=== PATIENT | female | born 1990 | race Caucasian/White ===

== ENCOUNTER 2017-03-14 00:03 | Inpatient (IN) | payer OTHER ==
[2017-03-14] MEDS ORDERED: Misoprostol 25 MCG (1/4 of 100 MCG) Tab VAG PRN (00:06)
[2017-03-14] MEDS ORDERED: Sodium Chloride 0.9% 10 ML Syringe FLUSH PRN (00:06)
[2017-03-14] MEDS ORDERED: Acetaminophen 325 MG Tab PO PRN (00:06)
[2017-03-14] MEDS ORDERED: Zolpidem 5 MG Tab PO PRN (00:06)
[2017-03-14] MEDS ORDERED: Ondansetron 4 MG/2 ML SDV IV PRN (00:09)
[2017-03-14] MEDS ORDERED: Nalbuphine 10 MG/1 ML Vial IM PRN (00:09)
[2017-03-14] MEDS ORDERED: Carboprost Tromethamine 250 MCG/1 ML Amp IM PRN (00:09)
[2017-03-14] MEDS ORDERED: Misoprostol 400 MCG (4 X 100 MCG TAB) RECTAL PRN (00:09)
[2017-03-14] MEDS ORDERED: Lidocaine 1% 30 ML SDV INJECT PRN (00:09)
[2017-03-14] MEDS ORDERED: Methylergonovine 0.2 MG/1 ML Amp IM PRN (00:09)
[2017-03-14] MEDS ORDERED: fentaNYL 100 MCG/2 ML SDV IVPUSH PRN (00:09)
[2017-03-14] MEDS ORDERED: Oxytocin/Normal Saline 30 UNIT/500 ML BAG IV SCH (00:15)
[2017-03-14] MEDS ORDERED: Lactated Ringers 1,000 ML IV SCH (00:15)
--- NOTE | 2017-03-14 01:56 | HP ---
CHIEF COMPLAINT: Induction of labor plans. HISTORY OF PRESENT ILLNESS: The patient is a 26-year-old, G1, P0 currently at 39 and 3/7th weeks gestation based on last menstrual period confirmed with 11- week ultrasound. The patient and her present tonight for induction of labor because of thrombocytopenia with platelets trending downward in the office. Essentially, she had mononucleosis back in 2014 and after that developed a chronic mild immune thrombocytopenia with a positive MARIE antibody, but other rheumatological workup has been negative. During this , Maternal Medicine was consulted and essentially reported that she could do routine care. Induction of labor before 39 weeks for low platelets alone was not a necessity, and she needed to be on preeclampsia watch. If things were otherwise stable, then she could wait until later on for delivery. Oncology workup has included a Hematology visit with Dr. Montgomery's staff and they essentially report that again routine care would be indicated when the baby is delivered. Platelet count needs to be performed on the baby as these antibodies can cross the placenta and cause thrombocytopenia. Also, they report that administration of platelets likely would not be necessary appropriate treatment as her anti-platelet antibodies can destroy the transfused platelets. She has not needed doses of steroids in order to try to increase her platelet count. Her platelets have been holding in the 120s in general and at her last appointment were down to 113. We discussed risks and benefits of induction of labor including increased risk of need for operative delivery including section as compared to the risk of coming in a spontaneous labor and not having adequate platelets which would then necessitate avoidance of any neuraxial analgesia, and she would be relying only on IM and IV pain medications at that point. Discussed with her that we could also potentially try oral prednisone to see if we could boost the platelets even further and anticipate that she would be in spontaneous labor soon. Ultimately, her and she had a thorough discussion, and she called back today with additional questions. After our discussion, we agreed to proceed with induction of labor with plans for Cytotec followed by artificial rupture and augmentation with Pitocin. I am hoping that we could proceed with vaginal delivery and not end up in . The patient reports doing well. No symptoms of preeclampsia. Denies having any regular contractions, has possibly felt a little bit of uterine cramping. movement has been good. No leakage of fluid or vaginal bleeding. LABORATORY DATA: Show blood type O positive. Antibody screen negative. Hemoglobin and hematocrit have been good. Platelet counts as noted trending downward from the 120s down to 113 earlier this week. Rubella immune. Syphilis serology nonreactive. Hepatitis B negative. HIV negative. Gonorrhea and chlamydia negative. Thyroid test normal. Wet prep negative. Pap normal. Glucose test is normal. Group B strep negative. Quad screen was deferred. The patient does plan on . She did have her Tdap and influenza vaccines this . Total weight gain has been 32 pounds. PAST MEDICAL HISTORY: 1. MARIE positive after infectious mono. Rheumatology workup essentially otherwise negative. 2. Chronic mild autoimmune thrombocytopenia. 3. She has history of ear piercing. No transfusions, tattoos, or IV drug use. 4. Menarche at age 13 with monthly cycles and flow of 3 to 5 days. FAMILY HISTORY: Mother with thyroid disease and vitiligo. Father is healthy. Paternal grandfather with diabetes, CHF, kidney disease, and hypertension. Maternal grandmother with thyroid disease. Maternal aunt, thyroid disease. Maternal great uncle with thyroid disease. Paternal grandmother, great grandmother, great aunt, and great uncle with diabetes. Paternal grandmother with gallbladder disease. Maternal grandfather with heart disease and 3 stents, also has a history of bleeding ulcers. Various 2nd to 3rd degree family members with leukemia, lung cancer, heart failure, diabetes, prostate cancer, emphysema, lung cancer, liver cirrhosis, and alcohol abuse. SOCIAL HISTORY: The patient is to [facility]. She works at [employer], and he is a commissioned fire officer. They live in [place]. This will be their first child together. They have 2 dogs and no cats. His family history is only remarkable for having a sister, who is a carrier for cystic fibrosis. MEDICATIONS: vitamin 1 daily. ALLERGIES: No known drug allergies. REVIEW OF SYSTEMS: As stated under the HPI; no fever, chills, nausea, vomiting, diarrhea, constipation, dysuria, or back pain. No neurological symptoms. No symptoms of preeclampsia. No other specific concerns are reported at this time. PHYSICAL EXAMINATION: Vital Signs: Blood pressure 114/80, temperature of 98.4, respiratory rate is normal. HEENT: Grossly unremarkable. Heart: Regular without obvious murmur. Lungs: Clear to auscultation bilaterally. Abdomen: Soft without masses. Fundus is firm and contractions are palpating mild. heart tones are 130 beats per minute at baseline. Moderate [id number] variability. Accelerations are noted. [place] shows initially contractions every 3 to 4 minutes. Will have runs of contractions every 1 minute. Cervix exam is deferred at this time as there was another patient here on Labor and Delivery, who will likely need section, so we will hold off on initiating induction of labor on this patient, and I am anticipating we will do this with AROM as she is kenneth too frequently for Cytotec and possibly even too frequently to initiate Pitocin as first line. Extremities: No edema, erythema, or tenderness noted. Neurological: No focal deficits. Reflexes are 2+ and equal. There is no clonus. CBC performed; hemoglobin 12.4, platelets 134. ASSESSMENT: 1. 1, para 0, currently at 39 and 3/7th weeks' gestation. 2. Planned induction of labor for thrombocytopenia with platelets trending downward in the clinic. 3. History of MARIE positive. 4. History of mononucleosis as the inciting factor for chronic immune thrombocytopenia. Hematology report printed off confirming baby needs to have a platelet check after delivery. Mother did not have any history of any easy bruising, bleeding, or other hematological types of symptoms. There is discussion that prognosis is good and reviewed that the administration of platelets would likely not be necessary as an appropriate treatment because of her antiplatelet antibodies would likely destroy the platelets. The patient and her are here. We have discussed holding off a little bit on induction until the other patient has been stabilized, and we will see how we are doing. I anticipate at this time that I will be inducing with AROM when appropriate. The patient is also kenneth quite regularly. Therefore, assume she is actually already in spontaneous early labor. [facility] /[id number] GIANA
[2017-03-14] MEDS ORDERED: Nalbuphine 10 MG/1 ML Vial IM ONE (02:46)
[2017-03-14] MEDS: Lactated Ringers 1,000 ML IV SCH ×3 (03:13→05:54)
[2017-03-14] MEDS ORDERED: fentaNYL 100 MCG/2 ML SDV ONE (05:15)
--- NOTE | 2017-03-14 05:55 | PCM.PREANE ---
Preanesthetic Assessment - Procedure Proposed Procedure: Vaginal Delivery ITN for labor pain - Anesthesia/Transfusion/Family Hx Anesthesia History: No Prior Anesthesia Family History of Anesthesia Reaction: No Transfusion History: No Prior Transfusion(s) - Review of Systems General: No Symptoms Pulmonary: No Symptoms Cardiovascular: No Symptoms Gastrointestinal: No symptoms Neurological: No Symptoms Other: Reports: None - Physical Assessment NPO Status Date: 03/14/17 NPO Status Time: 04:00 Pulse: 79 O2 Sat by Pulse Oximetry: 98 Respiratory Rate: 20 Blood Pressure: 118/72 Height: 1.67 m Weight: 73.028 kg ASA Class: 2 Mental Status: Alert & Oriented x3 Dentition: Reports: Normal Dentition ROM/Head Extension: Full Lungs: Clear to auscultation, Normal respiratory effort Cardiovascular: Regular Rate, Regular Rhythm - Lab Values: Laboratory Last Values WBC 12.7 10^3/uL (5.0-10.0) H 03/14/17 00:18 RBC 3.91 10^6/uL (4.2-5.4) L 03/14/17 00:18 Hgb 12.4 g/dL (12.0-16.0) 03/14/17 00:18 Hct 38.0 % (37.0-47.0) 03/14/17 00:18 MCV 97.2 fL (80-100) 03/14/17 00:18 MCH 31.7 pg (27.0-34.0) 03/14/17 00:18 MCHC 32.6 g/dL (33.0-35.0) L 03/14/17 00:18 Plt Count 134 10^3/uL (150-450) L 03/14/17 00:18 - Allergies Allergies/Adverse Reactions: Allergies Allergy/AdvReac Type Severity Reaction Status Date / Time No Known Allergies Allergy Verified 03/14/17 00:06 - Blood Blood Available: No Product(s) Available: None - Anesthesia Plan Pre-Op Medication Ordered: None - Acknowledgements Anesthesia Type Planned: Spinal Pt an Appropriate Candidate for the Planned Anesthesia: Yes Alternatives and Risks of Anesthesia Discussed w Pt/Guardian: Yes Pt/Guardian Understands and Agrees with Anesthesia Plan: Yes Additional Comments: R/B of Intrathecal Narcotics for Labor pain discussed and agreed on by patient. Pain scale is 8-10 PreAnesthesia Questionnaire - HOME MEDS Home Medications: Home Meds #103/Iron Fumarate/Fa [ ] 1 each PO DAILY 03/14/17 [ History] - CURRENT (IN HOUSE) MEDS Current Meds: Current Medications Acetaminophen (Tylenol) 650 mg PO Q4H PRN PRN Reason: Pain/Fever Carboprost Tromethamine (Hemabate Ds) 250 mcg IM ASDIRECTED PRN PRN Reason: HEMORRHAGE Fentanyl (Sublimaze) 50 mcg IVPUSH Q1H PRN PRN Reason: Pain (moderate 4-6) Lactated Ringer's (Ringers, Lactated) 1,000 mls @ 999 mls/hr IV ASDIRECTED TAISHA Oxytocin/Sodium Chloride (Pitocin In Ns 30 Unit/500 Ml) 30 unit in 500 mls @ 2 mls/hr IV TITRATE TAISHA; 2 MUNITS/MIN PRN Reason: Protocol Lactated Ringer's (Ringers, Lactated) 1,000 mls @ 125 mls/hr IV ASDIRECTED TAISHA Last Admin: 03/14/17 05:05 Dose: 125 mls/hr Lidocaine HCl (Xylocaine-Mpf 1%) 10 ml INJECT ASDIRECTED PRN PRN Reason: Perineal Repair Methylergonovine Maleate (Methergine) 0.2 mg IM ASDIRECTED PRN PRN Reason: Hemorrhage Misoprostol (Cytotec) 25 mcg VAG Q4H PRN PRN Reason: cervical ripening Stop: 03/15/17 04:07 Misoprostol (Cytotec) 800 mcg RECTAL ASDIRECTED PRN PRN Reason: Hemorrhage Ondansetron HCl (Zofran) 4 mg IV Q4H PRN PRN Reason: Nausea/Vomiting Last Admin: 03/14/17 05:05 Dose: 4 mg Sodium Chloride (Saline Flush) 10 ml FLUSH ASDIRECTED PRN PRN Reason: Keep Vein Open Zolpidem Tartrate (Ambien) 5 mg PO BEDTIME PRN PRN Reason: Insomnia Stop: 03/14/17 21:01 Discontinued Medications Fentanyl (Sublimaze) Confirm Administered Dose 100 mcg .ROUTE .STK-MED ONE Stop: 03/14/17 05:16 Nalbuphine HCl (Nubain) 20 mg IM ONETIME PRN PRN Reason: Abdominal Pain Stop: 03/14/17 04:00 Nalbuphine HCl (Nubain) 20 mg IM ONETIME ONE Stop: 03/14/17 02:47 Last Admin: 03/14/17 02:57 Dose: 20 mg Sufentanil Citrate (Sufenta) Confirm Administered Dose 50 mcg .ROUTE .K-MED ONE Stop: 03/14/17 05:16
--- NOTE | 2017-03-14 05:57 | PCM.PRNOTE ---
- Free Text/Narrative Note: Chart Reviewed, Patient ID'd, Risk Benefit of spinal narcotic for labor pain is discussed and agreed to by patient. Consent signed. Preloaded with 1 liter of LR. Baseline VS is obtained. In sitting position L 4-5 inner space is id'd. Skin wheel and space infiltration with 1% lidocaine. 24 G pencan spinal needle is introduced into via 18 G introducer needle into SA space. No Paresthesia, No Blood, Positive CSF. 6 mg Hyperbaric Marcaine, 20 mcg sufentanyl, 30 mcg fentanyl, epinepherine wash and 1 ml preservative free normal saline injected after positive swirl of CSFx2. VSS Dermatone level is T8 Bilateral and immediate labor pain relieve reported by patient.
[2017-03-14] MEDS ORDERED: Ibuprofen 800 MG Tab PO PRN (10:23)
[2017-03-14] MEDS ORDERED: Benzocaine/Menthol 20%-0.5% Spray 56 GM Canister TOP PRN (10:23)
[2017-03-14] MEDS ORDERED: Simethicone 80 MG Tab.Chew PO PRN (10:23)
[2017-03-14] MEDS ORDERED: fentaNYL 100 MCG/2 ML SDV ITHECAL ONE (13:27)
[2017-03-14] MEDS: Acetaminophen/HYDROcodone 325-10 MG Tab PO PRN ×2 (13:30→18:32)
[2017-03-14] MEDS: Docusate Sodium 100 MG Cap PO PRN (21:28)
[2017-03-15] MEDS: Acetaminophen/HYDROcodone 325-10 MG Tab PO PRN ×3 (00:42→16:51)
--- NOTE | 2017-03-15 00:51 | DEL ---
DATE: 03/14/2017 PREPROCEDURE DIAGNOSES: 1. A 39 and 3/7th weeks intrauterine based on LMP and 11-week ultrasound. 2. Mild chronic immune thrombocytopenia secondary to mono in December of 2014. 3. Antinuclear antibody positive, however, negative rheumatological evaluation. 4. Blood type O positive. 5. Rubella immune. 6. Group B strep negative. POSTPROCEDURE DIAGNOSES: 1. A 39 and 3/7th weeks intrauterine based on LMP and 11-week ultrasound. 2. Mild chronic immune thrombocytopenia secondary to mono in December of 2014. 3. Antinuclear antibody positive, however, negative rheumatological evaluation. 4. Blood type O positive. 5. Rubella immune. 6. Group B strep negative. 7. Status post spontaneous vaginal delivery with third-degree laceration repair under intrathecal anesthesia. BRIEF HISTORY: A 26-year-old 1, para 0 with the above-listed diagnoses, who was admitted to the hospital just after midnight last night for induction of labor because of the thrombocytopenia with platelets trending downward, and the patient highly concerned about being able to receive neuraxial analgesia for her pain. We had a discussion about the indications, risks, benefits, and alternatives to induction of labor, and she was agreeable to proceed. See history and physical for full details. Upon presentation, the patient was kenneth regularly and too frequently for Cytotec or even for Pitocin, so artificial rupture of membranes was performed. After that, she was in labor for approximately 5-1/2 hours and pushed for 1 hour and 5 minutes prior to delivery. Labor course was excellent. She received an intrathecal for anesthesia when she was approximately 7 cm dilated, which did carry her through delivery. There were no problems with intolerance or maternal complications of labor. PROCEDURE IN DETAIL: With the patient in the dorsal lithotomy position, she delivered a viable male infant in the OA position over intact perineum. 's mouth and nose were bulb suctioned, and dried and stimulated and then placed on the mother's abdomen. After a minimum 30-second delay, the three- vessel umbilical cord was doubly clamped and then cut. Baby then pulled up to mother's chest. Placenta then delivered by gentle cord traction and concomitant uterine massage inspected and intact after approximately 3 minutes. The labia, vagina, and cervix were then inspected and she had a third-degree midline laceration which was repaired with 3-0 Vicryl in the usual fashion. No other vaginal or labial trauma was noted. Rectal exam was performed and intact. No stitches palpated in the rectum. The patient had tolerated the procedure well. DISPOSITION: Mother and baby to stay in the room for skin to skin and to initiate breast-feeding at this time. ESTIMATED BLOOD LOSS: 400 mL. COMPLICATIONS: None. FINDINGS: A viable male , Apgars 8 and 9. weight 3370 g, 7 pounds 7 ounces. Length 19-1/4 inches. [facility] /[id number]
[2017-03-15] MEDS: Docusate Sodium 100 MG Cap PO PRN ×2 (06:49→22:26)
--- NOTE | 2017-03-15 08:46 | PCM.POSTAN ---
POST ANESTHESIA ASSESSMENT - MENTAL STATUS Mental Status: alert, oriented - VITAL SIGNS Pulse Rate: 72 SaO2: 98 Resp Rate: 19 Blood Pressure: 124/72 - RESPIRATORY Respiratory Status: respiratory rate WNL, airway patent, O2 saturation stable - CARDIOVASCULAR CV Status: pulse rate WNL, blood pressure stable - GASTROINTESTINAL GI Status: no symptoms - PAIN Pain Score: 0 - POST OP HYDRATION Hydration Status: adequate & stable - OBSERVATIONS Free Text/Narrative:: Patient is sitting in chair. Ambulated and fully recovered from her Intrathecal narcotic and very pleased with the her anesthetic experience. Deny nausea or pain. going home tomorrow
[2017-03-15] MEDS: Prenatal Multivitamin with Calcium/Folic Acid/Iron Tab PO SCH (09:20)
--- NOTE | 2017-03-15 13:15 | PN ---
DATE: 03/15/2017 SUBJECTIVE: day #1, the patient is doing well. She has been ambulating and tolerating a regular diet. Denies any chest pain or shortness of breath. No symptoms of preeclampsia. Bleeding has been moderate. She is her baby and that seems to be going well. Reports not yet passing flatus, and is scared about having her 1st bowel movement. She is voiding without difficulty, and no other acute concerns. OBJECTIVE: Vital Signs: Temperature is 98.8, pulse 72, blood pressure 124/72, respiratory rate of 19 and O2 saturations 98% on room air. Heart: Regular without obvious murmur. Lungs: Clear to auscultation bilaterally. Abdomen: Soft and nontender. Fundus is firm and below the umbilicus. She does have some mild distention and positive bowel sounds in all 4 quadrants. Extremities: No edema, erythema, or tenderness noted. LABORATORY DATA: Hemoglobin down to 9.7 from a previous 12.4, and platelet count of 91 down from a previous 134. ASSESSMENT: 1. Status post uncomplicated vaginal delivery with third-degree laceration repair. 2. Anemia of acute blood loss. 3. Antinuclear antibody positive. However, negative rheumatological evaluation. 4. Mild chronic immune thrombocytopenia. PLAN: For discharge home tomorrow. Continue to watch for signs or symptoms of bleeding. I anticipate she will do well from that standpoint and that her platelets will recover. We will plan on checking those . Her questions have been answered. [facility] /[id number]
[2017-03-15] MEDS: Ferrous Sulfate 325 MG Tab PO SCH (18:00)
[2017-03-16] MEDS: Acetaminophen/HYDROcodone 325-10 MG Tab PO PRN (00:47)
[2017-03-16] MEDS: Ferrous Sulfate 325 MG Tab PO SCH (08:46)
[2017-03-16] MEDS: Prenatal Multivitamin with Calcium/Folic Acid/Iron Tab PO SCH (08:46)
[2017-03-16] MEDS: Docusate Sodium 100 MG Cap PO PRN (08:46)
[2017-03-16 09:17] VITALS: BP 106/74
--- NOTE | 2017-03-16 11:31 | PCM.DCSUM1 ---
Discharge Summary - Hospital Course Free Text/Narrative:: 26-year-old, now , was admitted for induction of labor at 39w3d due to worsening thrombocytopenia. She delivered a viable baby boy with Apgars of 8 and 9 at 1 and 5 minutes respectively. She had a 3rd degree laceration that was repaired under intrathecal anesthesia. - Discharge Data Discharge Date: 03/16/17 Discharge Disposition: Home, Self-Care 01 Condition: Good - Patient Summary/Data Operative Procedure(s) Performed: None Complications: None Consults: Consultations 03/14/17 10:23 Consult to Loan Processing Supervisor [CONS] Routine Labs Pending at D/C: None Recommended Follow-up Testing/Procedures: Repeat platelet count at visit Planned Operative Procedure(s) after DC: None Hospital Course: Patient has had an unremarkable course. She is tolerating a general diet. No dizziness or lightheadedness. She is urinating without difficulty. she has passed gas but has not yet had a bowel movement. She is taking stool softeners daily. She is . No concerns per nursing. - Patient Instructions Diet: Usual Diet as Tolerated Activity: Apply Ice, As Tolerated Driving: May Drive Today Showering/Bathing: May Shower Notify Provider of: Fever, Increased Pain, Nausea and/or Vomiting - Discharge Plan Home Medications: Home Meds #103/Iron Fumarate/Fa [ ] 1 each PO DAILY 03/14/17 [ History] Acetaminophen [Tylenol] 650 mg PO Q4H PRN #0 tablet 03/16/17 [Rx] Docusate Sodium [Colace] 100 mg PO BID PRN #0 cap 03/16/17 [Rx] Ferrous Sulfate 325 mg PO BIDMEALS tablet 03/16/17 [Rx] Referrals: Nicolette Shaikh MD [Primary Care Provider] - - Discharge Summary/Plan Comment DC Time >30 min.: No Discharge Summary/Plan Comment: Discharge home today. Will give patient #15 tabs of [place] as she cannot take ibuprofen. Advised her to call the clinic on Saturday if she has not had a bowel movement by that time. Other reasons to return for evaluation or contact the clinic were discussed with the patient. She voiced her understanding and had no further questions. - General Info Date of Service: 03/16/17 Subjective Update: Doing well. No concerns. Please see above for details. Functional Status: Reports: pain controlled, tolerating diet, ambulating, urinating - Review of Systems General: Reports: No Symptoms HEENT: Reports: no symptoms Pulmonary: Reports: no symptoms Cardiovascular: Reports: No Symptoms Gastrointestinal: Reports: No symptoms Genitourinary: Reports: no symptoms Musculoskeletal: Reports: no symptoms Skin: Reports: no symptoms, dryness - Patient Data Vitals - Most Recent: Last Vital Signs Temp 36.3 C 03/16/17 08:00 Pulse 92 03/16/17 08:00 Resp 20 03/16/17 08:00 BP 106/74 03/16/17 08:00 Pulse Ox 99 03/16/17 08:00 Weight - Most Recent: 73.028 kg I&O - Last 24 hours: Intake & Output 03/15/17 03/16/17 03/16/17 22:59 06:59 14:59 Intake Total 360 360 Balance 360 360 Med Orders - Current: Current Medications Acetaminophen (Tylenol) 650 mg PO Q4H PRN PRN Reason: Pain/Fever Hydrocodone Bitart/Acetaminophen ([place] 325-10 Mg) 1 tab PO Q4H PRN PRN Reason: Pain Last Admin: 03/16/17 00:47 Dose: 1 tab Benzocaine/Menthol (Dermoplast Pain Relief [place]) 0 gm TOP Q4H PRN PRN Reason: Perineal comfort measures Last Admin: 03/14/17 13:31 Dose: 1 gram Docusate Sodium (Colace) 100 mg PO BID PRN PRN Reason: Constipation Last Admin: 03/16/17 08:46 Dose: 100 mg Ferrous Sulfate (Ferrous Sulfate) 325 mg PO BIDMEALS TAISHA Last Admin: 03/16/17 08:46 Dose: 325 mg Oxytocin/Sodium Chloride (Pitocin In Ns 30 Unit/500 Ml) 30 unit in 500 mls @ 2 mls/hr IV TITRATE TAISHA; 2 MUNITS/MIN PRN Reason: Protocol Last Titration: 03/14/17 13:30 Dose: Infused Lidocaine HCl (Xylocaine-Mpf 1%) 10 ml INJECT ASDIRECTED PRN PRN Reason: Perineal Repair Last Admin: 03/14/17 09:45 Dose: 30 ml Methylergonovine Maleate (Methergine) 0.2 mg IM ASDIRECTED PRN PRN Reason: Hemorrhage Misoprostol (Cytotec) 800 mcg RECTAL ASDIRECTED PRN PRN Reason: Hemorrhage Ondansetron HCl (Zofran) 4 mg IV Q4H PRN PRN Reason: Nausea/Vomiting Last Admin: 03/14/17 05:05 Dose: 4 mg Prenat Multivit/[employer]/Iron/Folic Ac ( Plus Iron) 1 each PO DAILY [facility] Last Admin: 03/16/17 08:46 Dose: 1 each Simethicone (Simethicone) 80 mg PO Q4H PRN PRN Reason: Gas Discontinued Medications Carboprost Tromethamine (Hemabate Ds) 250 mcg IM ASDIRECTED PRN PRN Reason: HEMORRHAGE Fentanyl (Sublimaze) 50 mcg IVPUSH Q1H PRN PRN Reason: Pain (moderate 4-6) Fentanyl (Sublimaze) Confirm Administered Dose 100 mcg .ROUTE .STK-MED ONE Stop: 03/14/17 05:16 Last Admin: 03/14/17 13:25 Dose: Not Given Fentanyl (Sublimaze) 30 mcg ITHECAL .STK-MED ONE Stop: 03/14/17 13:28 Lactated Ringer's (Ringers, Lactated) 1,000 mls @ 999 mls/hr IV ASDIRECTED [facility] Lactated Ringer's (Ringers, Lactated) 1,000 mls @ 125 mls/hr IV ASDIRECTED [facility] Last Admin: 03/14/17 05:54 Dose: 125 mls/hr Ibuprofen (Motrin) 800 mg PO Q8H PRN PRN Reason: Mild Pain or Fever Misoprostol (Cytotec) 25 mcg VAG Q4H PRN PRN Reason: cervical ripening Stop: 03/15/17 04:07 Nalbuphine HCl (Nubain) 20 mg IM ONETIME PRN PRN Reason: Abdominal Pain Stop: 03/14/17 04:00 Nalbuphine HCl (Nubain) 20 mg IM ONETIME ONE Stop: 03/14/17 02:47 Last Admin: 03/14/17 02:57 Dose: 20 mg Sodium Chloride (Saline Flush) 10 ml FLUSH ASDIRECTED PRN PRN Reason: Keep Vein Open Sufentanil Citrate (Sufenta) Confirm Administered Dose 50 mcg .ROUTE .STK-MED ONE Stop: 03/14/17 05:16 Last Admin: 03/14/17 13:25 Dose: Not Given Sufentanil Citrate (Sufenta) 20 mcg IV .STK-MED ONE Stop: 03/14/17 13:28 Zolpidem Tartrate (Ambien) 5 mg PO BEDTIME PRN PRN Reason: Insomnia Stop: 03/14/17 21:01 - Exam General: Reports: alert, oriented Lungs: Reports: Clear to auscultation, Normal respiratory effort Cardiovascular: Reports: Regular Rate, Regular Rhythm, No Murmurs Extremities: Reports: no edema Skin: Reports: warm, dry, intact *Q Meaningful Use (DIS) - VTE *Q VTE Criteria *Q: - Stroke *Q Stroke Criteria *Q: - AMI *Q AMI Criteria *Q:
== END 2017-03-16 14:40 | disposition home or self-care (01) | DRG 775 ==
LOC: DL.OBCHECK 00:03 → DL.OB 00:10 → INTOOBSV 00:10 → OBSVTOIN 00:10 → UNDOADMOB 00:10 → DL.OB 00:13 → UNDOADMOB 00:13 → DL.OB 09:40 → OBSVTOIN 09:40
PROVIDERS: ADMIT Family Medicine; ATTEND Family Medicine
PROC: 10E0XZZ Delivery of Products of Conception, External Approach (ICD-10-PCS; principal; 2017-03-14)
PROC: 0DQR0ZZ Repair Anal Sphincter, Open Approach (ICD-10-PCS; 2017-03-14)
PROC: 3E0R3CZ (ICD-10-PCS; 2017-03-14)
PROC: 10907ZC Drainage of Amniotic Fluid, Therapeutic from Products of Conception, Via Natural or Artificial Opening (ICD-10-PCS; 2017-03-14)
PROC: 3E033VJ Introduction of Other Hormone into Peripheral Vein, Percutaneous Approach (ICD-10-PCS; 2017-03-14)
DX: O99.12 Other diseases of the blood and blood-forming organs and certain disorders involving the immune mechanism complicating childbirth (principal); O70.20 Third degree perineal laceration during delivery, unspecified; D69.6 Thrombocytopenia, unspecified; Z3A.39 39 weeks gestation of pregnancy; Z37.0 Single live birth
CPT/HCPCS: 01967; 36415; 85027; A9270-GY; J2300; J2405; J2590; J3010; J7120

== ENCOUNTER 2019-09-25 22:57 | Inpatient (IN) | payer OTHER ==
[2019-09-25] MEDS ORDERED: Penicillin G Potassium 5,000,000 Unit Vial ONE (23:25)
[2019-09-25] MEDS ORDERED: Misoprostol 400 MCG (4 X 100 MCG TAB) RECTAL PRN (23:36)
[2019-09-25] MEDS ORDERED: Sodium Chloride 0.9% 10 ML Syringe FLUSH PRN (23:36)
[2019-09-25] MEDS ORDERED: Methylergonovine 0.2 MG/1 ML Amp IM PRN (23:36)
[2019-09-25] MEDS ORDERED: Lactated Ringers 1,000 ML IV ONE (23:36)
[2019-09-25] MEDS ORDERED: Ondansetron 4 MG/2 ML SDV IV PRN (23:36)
[2019-09-25] MEDS ORDERED: Acetaminophen 325 MG Tab PO PRN (23:36)
[2019-09-25] MEDS ORDERED: Lidocaine 1% 30 ML SDV INJECT PRN (23:36)
[2019-09-25] MEDS ORDERED: Tranexamic Acid 1,000 MG in Sodium Chloride 0.9% 100 ML IV PRN (23:36)
[2019-09-25] MEDS ORDERED: Carboprost Tromethamine 250 MCG/1 ML Amp IM PRN (23:36)
[2019-09-25] MEDS ORDERED: Oxytocin/Normal Saline 30 UNIT/500 ML BAG IV SCH (23:45)
[2019-09-26] MEDS ORDERED: Penicillin G Potassium 5 MILLUNITS in Sodium Chloride 0.9% 100 ML IV ONE (00:03)
[2019-09-26] MEDS ORDERED: Oxytocin/Normal Saline 30 UNIT/500 ML BAG IV SCH (00:15)
[2019-09-26] MEDS: Lactated Ringers 1,000 ML IV SCH ×3 (02:29→06:22)
[2019-09-26] MEDS: Penicillin G Potassium 3 MILLUNITS in Sodium Chloride 0.9% 100 ML IV SCH ×4 (03:53→18:25)
[2019-09-26] MEDS ORDERED: Nalbuphine 10 MG/1 ML Vial IM STA (04:51)
[2019-09-26] MEDS ORDERED: fentaNYL 100 MCG/2 ML SDV IVPUSH STA (05:07)
[2019-09-26] MEDS ORDERED: fentaNYL 100 MCG/2 ML SDV ONE (06:09)
[2019-09-26] MEDS ORDERED: EPINEPHrine 1 MG/1 ML Amp ONE (06:09)
--- NOTE | 2019-09-26 06:54 | PCM.PRNOTE ---
- Free Text/Narrative Note: Requested to provide analgesia to full term patient in severe pain. Upon entering the room, patient is sitting on edge of bed complaining of severe abdominal/pelvic pain and discomfort. Procedure was discussed with patient including adverse outcomes and expectations. Pt consented to analgesia, SAB/ IT. Pt placed into a proper sitting position. Landmarks for SAB/IT were identified and marked. Hands were washed and appropriate PPE was applied. Back was prepped with betadine x3. A sterile, transparent, fenestrated drape was applied. Excess betadine was removed. Using 3 mL of a 1% lidocaine solution , a skin wheel was placed at the L2/L3 interspace. A 24 ga (4 inch) Pencan spinal needle was inserted until positive for CSF. Negative for heme or paresthesias. Injected fentanyl 30 mcg, sufentanil 25 mcg, and 7.5 mg of a 0.75 % bupivacaine solution with an epi wash. Pt was placed left lateral position for approximately 20 minutes. There were zero complications or adverse outcomes. Will continue to monitor. Procedure Date & Time: 09-26-19 [id number]
[2019-09-26] MEDS ORDERED: Zolpidem 5 MG Tab PO PRN (08:41)
[2019-09-26] MEDS ORDERED: Sodium Chloride 0.9% 10 ML Syringe FLUSH PRN (08:41)
[2019-09-26] MEDS ORDERED: Carboprost Tromethamine 250 MCG/1 ML Amp IM PRN (08:41)
[2019-09-26] MEDS ORDERED: Acetaminophen 325 MG Tab PO PRN (08:41)
[2019-09-26] MEDS ORDERED: Benzocaine/Menthol 20%-0.5% Spray 56 GM Canister TOP PRN (08:41)
[2019-09-26] MEDS ORDERED: Misoprostol 400 MCG (4 X 100 MCG TAB) RECTAL PRN (08:41)
[2019-09-26] MEDS ORDERED: Oxytocin 10 Units/1 ML SDV IM PRN (08:41)
[2019-09-26] MEDS ORDERED: Simethicone 80 MG Tab.Chew PO PRN (08:41)
[2019-09-26] MEDS ORDERED: Tranexamic Acid 1,000 MG in Sodium Chloride 0.9% 100 ML IV PRN (08:41)
[2019-09-26] MEDS: Docusate Sodium 100 MG Cap PO PRN ×2 (14:11→20:36)
[2019-09-26] MEDS: Ibuprofen 800 MG Tab PO PRN (14:11)
[2019-09-26] MEDS: Prenatal Multivitamin with Calcium/Folic Acid/Iron Tab PO SCH (17:32)
--- NOTE | 2019-09-26 20:53 | DEL ---
DATE: 09/26/2019 The patient delivered at [facility] on 09/26/2019. PREPROCEDURE DIAGNOSIS: This is an intrauterine at 39+ weeks gestational age. She was admitted with SROM and augmented with Pitocin. She does have chronic thrombocytopenia. DELIVERY TYPE: Normal spontaneous vaginal delivery. FINDINGS: There was a viable , scores of 8 and 9. Baby weighed 7 pounds or 3185 g. There was a 2nd-degree laceration which was repaired. ESTIMATED BLOOD LOSS: Roughly 200 mL. PROCEDURE IN DETAIL: The patient was admitted the night before with rupture of clear fluid. She was given penicillin for group B strep positive and it was augmented with Pitocin. She did receive an intrathecal, progressed to complete and pushed the 's head out without difficulty. The shoulder was delivered. was delivered and placed on the maternal abdomen. Delayed cord clamping was performed and then cord blood was collected after the cord was cut and clamped. The placenta was then delivered with massage and some gentle traction. Third-stage Pitocin was started really after that. There was a second-degree midline laceration that was repaired with 3-0 Vicryl in normal fashion. The placenta was delivered intact. Mom and baby were both doing well at the end of the delivery. [facility] /[id number]
[2019-09-27] MEDS: Ibuprofen 800 MG Tab PO PRN ×3 (01:07→21:52)
[2019-09-27] MEDS: Prenatal Multivitamin with Calcium/Folic Acid/Iron Tab PO SCH (09:30)
[2019-09-27] MEDS: Docusate Sodium 100 MG Cap PO PRN ×2 (09:30→20:08)
--- NOTE | 2019-09-27 13:03 | PN ---
DATE: 09/27/2019 LOCATION: [facility]. SUBJECTIVE: The patient is day #1, status post vaginal delivery at term. She does have chronic thrombocytopenia. The patient states her lochia is minimal. The baby is doing well. OBJECTIVE: Vital Signs: Temperature is 37, heart rate 76 to 85, blood pressure 101 to 119 over 65 to 69, respiratory rate 16 to 18, O2 saturation 96% to 100%. Abdomen: Fundus is firm below the umbilicus. Extremities: Have no tenderness, no edema. Pre-delivery hemoglobin was 11.8. White count this morning 8.4, hemoglobin 9.8, and platelets 110, mild acute blood loss anemia. The patient's blood type is O positive. She is rubella immune. ASSESSMENT AND PLAN: day 1, status post vaginal delivery at term. Mom and baby are both doing well. Her chronic thrombocytopenia is stable. We will continue care and likely discharge tomorrow. [facility] /[id number]
[2019-09-28] MEDS: Docusate Sodium 100 MG Cap PO PRN (08:49)
[2019-09-28] MEDS: Prenatal Multivitamin with Calcium/Folic Acid/Iron Tab PO SCH (08:49)
[2019-09-28] MEDS: Ibuprofen 800 MG Tab PO PRN (08:50)
[2019-09-28 09:02] VITALS: BP 103/72; PULSE 103
--- NOTE | 2019-09-28 10:04 | HP ---
LOCATION: [facility]. HISTORY OF PRESENT ILLNESS: The patient is a 29-year-old, G2, P1-0-0-1, with chronic thrombocytopenia who did notice rupture of membranes today at roughly 9:30 p.m. She is 39 weeks' gestational age. Comes in today. No bleeding. Minimal contractions. Good movement. Only complication, she does have chronic thrombocytopenia, but has seen Hematology and our Maternal Medicine before. OB HISTORY: The patient has had 1 vaginal delivery at term with a third degree laceration. Baby did weigh 3370 g. REFRIGERATION TECH HISTORY: No abnormal Paps. No STDs. PAST MEDICAL HISTORY: Significant for the chronic thrombocytopenia. PAST SURGICAL HISTORY: Negative. SOCIAL HISTORY: The patient does not smoke. ALLERGIES: The patient has no known drug allergies. LABS: Blood type is O positive, antibody negative. She is rubella immune. Syphilis negative. Hepatitis B negative. HIV negative. Gonorrhea and chlamydia negative. Hepatitis C negative. Pap smear was normal. Ultrasound and interval growth scan were both normal. Her 1-hour Glucola was 158, but 3- hour GTT was normal, and she is group B strep positive. PHYSICAL EXAMINATION: Vital Signs: The patient's temperature 36.8, heart rate 80, blood pressure 124/73, respiratory rate 18. Pelvic: External monitoring is reactive, reassuring with irregular contractions. Labor nurse did check this patient. She is grossly ruptured, roughly 2 cm. LABORATORY DATA: CBC: White count 9.0, hemoglobin 11.8, and platelets are 134. ASSESSMENT AND PLAN: A 29-year-old, G2, P1, with chronic thrombocytopenia, now admitted with premature rupture of membranes. She is group B strep positive; therefore, we will give penicillin. After that, if the patient is not in labor, likely start Pitocin. Her platelets are stable today, which is reassuring, and we will plan for a vaginal delivery. [facility] /[id number]
[2019-09-28] MEDS ORDERED: fentaNYL 100 MCG/2 ML SDV ITHECAL ONE (11:14)
[2019-09-28] MEDS ORDERED: EPINEPHrine 1 MG/1 ML Amp ONE (11:14)
== END 2019-09-28 11:15 | disposition home or self-care (01) | DRG 806 ==
LOC: DL.OBCHECK 22:57 → DL.OB 23:36 → OBSVTOIN 09-26 09:51 → DL.MS 09-27 19:41
PROVIDERS: ADMIT Obstetrics & Gynecology; ATTEND Obstetrics & Gynecology
PROC: 10E0XZZ Delivery of Products of Conception, External Approach (ICD-10-PCS; principal; 2019-09-26)
PROC: 0KQM0ZZ Repair Perineum Muscle, Open Approach (ICD-10-PCS; 2019-09-26)
DX: O99.12 Other diseases of the blood and blood-forming organs and certain disorders involving the immune mechanism complicating childbirth (principal); D62 Acute posthemorrhagic anemia; Z37.0 Single live birth; O99.824 Streptococcus B carrier state complicating childbirth; O42.02 Full-term premature rupture of membranes, onset of labor within 24 hours of rupture; D69.6 Thrombocytopenia, unspecified; Z3A.39 39 weeks gestation of pregnancy; O70.1 Second degree perineal laceration during delivery
CPT/HCPCS: 36415; 59409; 59414; 85027; A9270-GY; J0171; J2405; J2540; J2590; J3010; J7050; J7120